=== PATIENT | male | born 1985 | race American Indian/Alaskan Native ===

== ENCOUNTER 2016-07-16 17:06 | Inpatient (IN) | payer MEDICAID ==
--- NOTE | 2016-07-16 17:37 | Emergency Department Report ---
Chief Complaint: Wound/Laceration Stated Complaint: CHEST PAIN / WOUND INFECTION Time Seen by Provider: 07/16/16 17:34 - HPI History of Present Illness: 31 y/o male paraplegia complain of wound under right thigh and heel of left foot .pt complain of chest pain x 1 days .denies any n/v/d at present . - ROS Review of Systems: per HPI - Exam Vital Signs: Vital Signs 07/16/16 17:15 Temperature 97.5 F L Pulse Rate 100 H Respiratory 17 Rate Blood Pressure 134/74 O2 Sat by Pulse 100 Oximetry Physical Exam: GENERAL: The patient is well-developed and well-nourished. Patient is in NAD. HENT: Normocephalic. Atraumatic. Patient has moist mucous membranes. Throat: No erythema, swelling or exudates. EYES: Extraocular motions are intact, PERRL NECK: Supple. No meningitic signs are noted. There is no adenopathy noted. CHEST/LUNGS: Clear to auscultation bilaterally. No wheezing, rales or rhonchi noted. There is no respiratory distress noted. HEART/CARDIOVASCULAR: Regular rate and rhythm. Normal S1 S2. No murmurs, rubs , clicks, or gallops. ABDOMEN: Abdomen is soft, nontender.. Bowel sounds normoactive. There is no abdominal distention. Negative rebound tenderness. : Deferred. SKIN: There is no rash. There is no edema. There is no diaphoresis. NEURO: The patient is A&Ox3. The patient has no focal neurologic deficits. MUSCULOSKELETAL: There is no tenderness or deformity. There is no limitation range of motion. pt paraplegia PSYCH: Pt has appropriate mood and affect. MSE screening note: Focused history and physical exam performed. Due to findings the following was ordered: ED Disposition for MSE Condition: Stable
[2016-07-16 18:03] LABS: Mean Corpuscular HGB Conc 29 % (32-34); Platelet Count 551 K/mm3 (140-440); Red Blood Count 4.55 M/mm3 (3.65-5.03); White Blood Count 11.3 K/mm3 (4.5-11.0)
[2016-07-16 18:04] LABS: Hematocrit 30.5 % (35.5-45.6); Hemoglobin 8.9 gm/dl (11.8-15.2); Mean Corpuscular Hemoglobin 20 pg (28-32); Mean Corpuscular Volume 67 fl (84-94); Red Cell Distribution Width 22.2 % (13.2-15.2)
[2016-07-16 18:18] LABS: Blood Urea Nitrogen 7 mg/dL (9-20); Calcium 8.5 mg/dL (8.4-10.2); Carbon Dioxide 21 mmol/L (22-30); Chloride 102.4 mmol/L (98-107); Glucose 83 mg/dL (75-100); Potassium 4.1 mmol/L (3.6-5.0); Sodium 139 mmol/L (137-145)
[2016-07-16 18:25] LABS: Anion Gap 20 mmol/L
[2016-07-16 18:49] LABS: Basophils % (Manual) 0 % (0.0-1.8); Blastocytes % (Manual) 0 %
[2016-07-16 19:05] LABS: Anisocytosis 1+; Platelet Estimate Consistent w Auto
[2016-07-16 19:06] LABS: Diff Status Complete; Hypochromasia 1+; Target Cells 1+
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
[2016-07-17] MEDS ORDERED: VANCOMYCIN/NS 1 GM/250 ML 250 ML IV ONE (08:20)
[2016-07-17] MEDS ORDERED: LEVAQUIN 750MG/150ML 150 ML IV ONE (08:21)
[2016-07-17] MEDS ORDERED: NACL 0.9% 1000 ML 1,000 ML ONE (08:27)
--- NOTE | 2016-07-17 10:03 | XRay Report ---
AP CHEST : 07/17/16 CLINICAL: Chest pain. COMPARISON:None FINDINGS: Normal heart and pulmonary vessels. The lungs are normally expanded and clear. The bones and soft tissues are unremarkable. IMPRESSION: Normal chest.
--- NOTE | 2016-07-17 10:48 | XRay Report ---
LEFT ANKLE THREE VIEWS: 07/16/16 17:06:00 CLINICAL: Foot infection. COMPARISON: 11/29/13 FINDINGS: The bones of the hindfoot and midfoot have lysed and are grossly deformed and miniscule compared to the previous exam. There is collapse of both the hindfoot and midfoot in a deep soft tissue ulcer on the plantar aspect of the hindfoot. The distal leg is greatly enlarged with greater soft tissue swelling than on the prior exam. Periosteal reaction along the entire imaged portions of the distal fibula. IMPRESSION: Chronic osteomyelitis with destruction of the hindfoot and midfoot. There may also be involvement of the distal fibula. MRI of the lower leg may be more definitive.
--- NOTE | 2016-07-17 10:53 | XRay Report ---
LEFT FOOT THREE VIEWS: 07/17/16 08:22:00 CLINICAL: Foot swelling. COMPARISON: 11/29/13 FINDINGS: Diffuse osteopenia. The bones of the hindfoot and midfoot are deformed a miniscule compared to the previous exam. A large plantar soft tissue ulcer extends to the calcaneus. It appears that the fifth toe has been amputated with a short remaining fragment of the proximal phalanx of the fifth toe. New erosive changes in the first metatarsal phalangeal joint. Cortical erosion and indistinctness of the distal fourth metatarsal. There is marked soft tissue swelling of the foot and lower leg which is increased compared to the prior exam. IMPRESSION: Chronic osteomyelitis with destruction of the hindfoot and midfoot. Osteomyelitis involving the great toe at the MTP joint and distal fourth metatarsal. These are all new findings compared to the previous exam.
--- NOTE | 2016-07-17 10:59 | XRay Report ---
RIGHT FEMUR TWO VIEWS: 07/16/16 17:06:00 CLINICAL: Infection. FINDINGS: Exuberant periosteal new bone formation along several centimeters of the the midportion of the right femur is a new finding compared to the 11/30/13 exam of the pelvis and hips. The pattern is typical of chronic osteomyelitis. Status post BKA. Osteolysis of the right femoral head is chronic and unchanged compared to the previous exam. No fracture. Diffuse soft tissue edema. No soft tissue air. IMPRESSION: Chronic osteomyelitis involving several centimeters of the right mid femur. This appears to be a new finding since 11/30/13.
[2016-07-17] MEDS ORDERED: MILK OF MAGNESIA PO PRN (11:49)
[2016-07-17] MEDS ORDERED: TYLENOL PO PRN (11:49)
[2016-07-17] MEDS ORDERED: DULCOLAX PR PRN (11:49)
[2016-07-17] MEDS ORDERED: ZOFRAN IV PRN (11:49)
[2016-07-17] MEDS ORDERED: SODIUM CHLORIDE FLUSH SYRINGE 10 ML IV PRN (11:54)
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
[2016-07-17 13:03] LABS: Creatine Kinase 63 units/L (55-170)
[2016-07-17 13:05] LABS: Creatine Kinase MB < 1.0 ng/mL (0.0-4.0)
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
[2016-07-17 17:51] LABS: Creatine Kinase 70 units/L (55-170)
[2016-07-17 17:54] LABS: Creatine Kinase MB < 1.0 ng/mL (0.0-4.0)
[2016-07-17] MEDS: MERREM 1,000 MG in NACL 0.9% 100 ML IV SCH ×2 (18:40→22:24)
[2016-07-17 20:39] LABS: Creatine Kinase 71 units/L (55-170)
[2016-07-17 20:41] LABS: Creatine Kinase MB < 1.0 ng/mL (0.0-4.0)
[2016-07-18] MEDS: MERREM 1,000 MG in NACL 0.9% 100 ML IV SCH ×5 (00:26→21:01)
[2016-07-18 01:32] LABS: Bacteria,Urine 1+ /HPF (Negative); Bilirubin,Urine NEG (Negative); Blood,Urine SM (Negative); Ketones,Urine NEG (Negative); Leukocyte Esterase,Urine LG (Negative); Mucus,Urine FEW /HPF; Nitrite,Urine POS (Negative)
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
--- NOTE | 2016-07-18 12:23 | Event Note ---
Date: 07/18/16
[2016-07-18 15:47] LABS: Basophils % (Auto) 0.7 % (0.0-1.8); Eosinophils % (Auto) 2.9 % (0.0-4.3); Mean Corpuscular HGB Conc 29 % (32-34); Platelet Count 513 K/mm3 (140-440); Red Blood Count 4.24 M/mm3 (3.65-5.03); White Blood Count 6.8 K/mm3 (4.5-11.0)
[2016-07-18 15:50] LABS: Hematocrit 29.3 % (35.5-45.6); Hemoglobin 8.6 gm/dl (11.8-15.2); Mean Corpuscular Hemoglobin 20 pg (28-32); Mean Corpuscular Volume 69 fl (84-94)
[2016-07-18 15:51] LABS: Red Cell Distribution Width 22.4 % (13.2-15.2)
[2016-07-18 15:53] LABS: Anion Gap 16 mmol/L; BUN/Creatinine Ratio 16.66; Blood Urea Nitrogen 10 mg/dL (9-20); Calcium 8.6 mg/dL (8.4-10.2); Carbon Dioxide 22 mmol/L (22-30); Chloride 101.3 mmol/L (98-107); Glucose 101 mg/dL (75-100); Potassium 4.4 mmol/L (3.6-5.0); Sodium 135 mmol/L (137-145)
[2016-07-18] MEDS: MORPHINE IV PRN ×2 (16:05→20:54)
[2016-07-19] MEDS: MORPHINE IV PRN ×4 (01:17→20:07)
[2016-07-19] MEDS: NACL 0.9% 1000 ML 1,000 ML IV SCH (05:29)
[2016-07-19] MEDS: MERREM 1,000 MG in NACL 0.9% 100 ML IV SCH ×3 (05:29→21:55)
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
--- NOTE | 2016-07-19 15:25 | Admit Criteria Form ---
Admission Criteria Documentation: OSTEOMYELITIS Clinical Indications for Admission to Inpatient Care (Place 'X' for any and all applicable criteria) Admission is indicated by ANY ONE of the following (1)(2)(3)(4)(5)(6): [ ] I. Significant systemic illness indicated by 2 or more of the following: [ ]a) Core (eg rectal) temperature greater or equal np969K(37.8C) in an adult [ ]b) Oral temperature[A] greater than or equal to 99.3 degrees F ( 37.4 degrees C) in an adult [ ]c) Heart rate greater than 90 beats per minute [ ]d) Respiratory rate greater than 20 breaths per minute or PaCO2 less than 32 mm Hg (4.3 kPa) [X ]e) White blood cell count > 12,000/mm3 (12 x109/L) or < 4000/mm3 ( 4 x109/L) or > 10% band cells [ ] II. Hemodynamic instability [ ] III. Severe pain requiring acute inpatient management [ ] IV. Bacteremia [ ] V. Mental status change (new) [ X] . Limb-threatening infection [ ] VII. Suspected necrotizing soft tissue infection (e.g., gas in tissue) [ ] VIII.Surgical intervention required (e.g., bone or soft tissue debridement, removal of foreign body, or revascularization procedure) not performable in outpatient or emergency department level of care(7) [X ] IX. Appropriate monitoring and therapy (IV antibiotics) cannot be immediately arranged for home or outpatient setting [ ] XI. Outpatient treatment failure (e.g., resistant organism identified, adverse medication effect, progression or lack of sufficient improvement of infection) [ ] XII. High-risk comorbid condition present including ANY ONE of the following : [ ]a) Poorly controlled diabetes (e.g., HbA1c greater than 10% (0.1)) [ ]b) Vascular insufficiency to affected area [ ]c) Cirrhosis [ ]d) Neutropenia [ ]e) Asplenia [ ]f) Immunosuppression (e.g., chronic systemic corticosteroid use) [ ]g) Symptomatic heart failure [ ] XIII.Joint involvement (e.g., septic arthritis) suspected [ ] XIV. Vertebral osteomyelitis [ ] XV. Skull-base osteomyelitis (e.g.,"malignant external otitis")[A](8)(9)(10 ) Extended stay beyond goal length of stay may be needed for(1)(3)(4)(5)(24)(25): [ ]a) Inadequate clinical response to antibiotics (e.g., continued fever, hypotension) [ ]b) Bacteremia [ ]c) Surgical intervention needed (e.g., beyond superficial debridement)(26) [ ]d) Vertebral osteomyelitis with spinal cord compression, abscess formation, or mechanical instability [ ]e) Antibiotic-resistant organism identified (e.g., methicillin-resistant Staphylococcal aureus) [ ]f) Deep venous thrombosis [ ]g) Unstable comorbidities (e.g., heart failure, renal insufficiency, immunosuppressed state)(28) The original [facility] H?REL content created by [facility] has been revised. The portions of the content which have been revised are identified through the use of italic text or in bold, and [facility] has neither reviewed nor approved the modified material. All other unmodified content is copyright [facility] [employer] 2016. Admission Criteria Met: Yes
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
--- NOTE | 2016-07-19 17:34 | Progress Note ---
[id number] [id number] Status: Chronic Plan to address problem: With the wheelchair ambulation only status I recommended an above-knee amputation, I have discussed this with him again. He has not decided for amputation, till he has made up his mind and ready to proceed with amputation, advised to continue with antibiotic suppression, local wound care. There is nothing more I could offer during this time. Once she has elected to proceed with amputation, please call us back, we will schedule amputation as an elective procedure at that time. Till then we'll sign off. (2) Decubitus ulcer of right thigh Current Visit: Yes Status: Acute Plan to address problem: He may continue with local wound care and antibiotic suppression. It is my belief that you injury will need a proximal level amputation, most likely a hip disarticulation because the location of the decubitus. It may be worthwhile to consult plastic surgery to see whether decubitus could be covered with a skin flap or otherwise, I doubt this is possible, my knoledge is limited in this regard. If she elected proceed with a hip disarticulation, this could be staged for later time once a satisfactory recovery from the left above-knee amputation. Prior to the right hip disarticulation, also will need a general surgery evaluation and a temporary diverging colostomy. Nothing more to offer this time. Subjective Date of service: 07/19/16 Principal diagnosis: left foot osteomyelitis Interval history: No change in status. Objective Vital signs: Vital Signs - 12hr 07/19/16 07/19/16 07/19/16 07:38 10:00 12:12 Temperature 97.6 F 98.0 F Pulse Rate [ 88 88 87 Left] Respiratory 16 20 18 Rate Blood Pressure 120/56 114/57 [Left Arm] O2 Sat by Pulse 99 97 Oximetry 07/19/16 16:25 Temperature 97.8 F Pulse Rate [ 83 Left] Respiratory 18 Rate Blood Pressure 129/70 [Left Arm] O2 Sat by Pulse 99 Oximetry - Labs CBC & BMP: 07/18/16 15:13 07/18/16 15:13
[2016-07-20] MEDS: DAKIN'S HALF STRENGTH TP SCH ×3 (00:01→21:19)
[2016-07-20] MEDS: MERREM 1,000 MG in NACL 0.9% 100 ML IV SCH ×3 (05:25→21:14)
[2016-07-20] MEDS: MORPHINE IV PRN ×4 (05:27→21:13)
[2016-07-20] MEDS: NACL 0.9% 1000 ML 1,000 ML IV SCH ×3 (09:22→21:17)
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
[2016-07-21] MEDS: MORPHINE IV PRN ×4 (01:37→21:51)
[2016-07-21] MEDS: MERREM 1,000 MG in NACL 0.9% 100 ML IV SCH ×3 (05:32→21:51)
[2016-07-21] MEDS: NACL 0.9% 1000 ML 1,000 ML IV SCH (13:20)
[2016-07-21] MEDS: DAKIN'S HALF STRENGTH TP SCH ×2 (13:21→21:53)
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
[2016-07-22] MEDS: MORPHINE IV PRN ×5 (01:38→21:09)
[2016-07-22] MEDS: NACL 0.9% 1000 ML 1,000 ML IV SCH ×3 (01:39→23:49)
[2016-07-22] MEDS: MERREM 1,000 MG in NACL 0.9% 100 ML IV SCH ×3 (05:38→23:50)
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
[2016-07-22] MEDS: DAKIN'S HALF STRENGTH TP SCH ×2 (15:11→23:50)
[2016-07-23] MEDS: MORPHINE IV PRN ×4 (01:35→23:56)
[2016-07-23] MEDS: MERREM 1,000 MG in NACL 0.9% 100 ML IV SCH ×3 (07:02→21:48)
[2016-07-23] MEDS: NACL 0.9% 1000 ML 1,000 ML IV SCH ×2 (12:00→21:51)
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
[2016-07-23] MEDS: DAKIN'S HALF STRENGTH TP SCH ×2 (15:37→23:40)
[2016-07-24] MEDS: MERREM 1,000 MG in NACL 0.9% 100 ML IV SCH ×2 (06:59→13:59)
[2016-07-24] MEDS: DAKIN'S HALF STRENGTH TP SCH (10:55)
--- NOTE | 2016-07-24 11:11 | Progress Note ---
Assessment and Plan - Patient Problems (1) Left foot infection Current Visit: Yes Status: Chronic Plan to address problem: We'll tentatively scheduled for left above-knee amputation possibly for tomorrow pending availability of OR time, my schedule. (2) Decubitus ulcer of right thigh Current Visit: Yes Status: Acute Subjective Date of service: 07/24/16 Principal diagnosis: left foot osteomyelitis Interval history: No new changes, he had agreed for left lower extremity amputation, above knee type. Procedure, complications, expected outcome discussed with. Objective Vital signs: Vital Signs - 12hr 07/23/16 07/24/16 07/24/16 23:56 00:47 05:08 Temperature 98.1 F 103.1 F H Pulse Rate [ 93 H 62 Left] Respiratory 20 21 19 Rate Blood Pressure 124/58 125/59 [Left Arm] O2 Sat by Pulse 97 100 Oximetry 07/24/16 07/24/16 07:00 07:48 Temperature 97.6 F 97.6 F Pulse Rate [ 66 Left] Respiratory 20 Rate Blood Pressure 114/65 [Left Arm] O2 Sat by Pulse 100 Oximetry - Labs CBC & BMP: 07/18/16 15:13 07/18/16 15:13
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
[2016-07-24] MEDS: NACL 0.9% 1000 ML 1,000 ML IV SCH (12:55)
[2016-07-24 15:54] VITALS: BP 126/69
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
--- NOTE | 2016-07-27 11:31 | Query-Ulcer ---
Deajennifer Plaza Date:_07/27/16 Multigraph Operator/CDS:_Dwight/Jason Michel Phone#:_[phone] Exercise your independent professional judgment when responding to query. Questions asked do not imply a particular answer is desired or expected. We greatly appreciate your clarification on this issue. Clinical Documentation States: 31 Y/O paraplegic Male admitted on 07/17/16 with complaints of foul smelling wounds under his right thigh and left heel. Clinical Findings Show: Right Leg wound culture growing diptheroids, pseudomonas aeruginosa, Acientobacter Lwoffii Left foot wound culture growing pseudomonas aeruginosa, Acientobacter Lwoffii, Please specify the cause of Ulcer: [ ] Diabetic Ulcer [ x] Pressure Ulcer [ ] Venous Stasis Ulcer [ ] Arterial Ulcers (Ischemic Ulcer) [ ] Other: [ ] Unspecified Please specify the stage below: [ ] Stage I (pre-ulcer skin changes limited to persistent focal erythema) [ ] Stage II (abrasion, blister, and partial thickness skin loss) [ ] Stage III (full thickness skin loss with subcutaneous necrosis/damage) [ ] Stage IV (necrosis of soft tissues through to underlying muscle, tendon, bone) [ x] Unstageable [ ] Unable to determine Present on Admission: [y ] Yes (Y) [ ] Clinically undeterminable (W) [ ] No (N) Please also document response in your Progress Notes and/or Discharge Summary and indicate if the condition was present on admission. KATHERYN
== END 2016-07-24 20:10 | disposition left against medical advice (07) | DRG 872 ==
LOC: ED 17:06 → 4A 07-17 11:49
PROVIDERS: ADMIT Internal Medicine; ATTEND Internal Medicine
DX: A41.9 Sepsis, unspecified organism (principal); N39.0 Urinary tract infection, site not specified; R07.89 Other chest pain; M86.8X7 Other osteomyelitis, ankle and foot; M86.651 Other chronic osteomyelitis, right thigh; G82.20 Paraplegia, unspecified; D63.8 Anemia in other chronic diseases classified elsewhere; L89.219 Pressure ulcer of right hip, unspecified stage; Z86.718 Personal history of other venous thrombosis and embolism; Z98.890 Other specified postprocedural states; Z89.511 Acquired absence of right leg below knee; Z88.8 Allergy status to other drugs, medicaments and biological substances; Z86.711 Personal history of pulmonary embolism
CPT/HCPCS: 36415; 71010; 80048; 81001; 82140; 82550; 82553; 84484; 85007; 85025; 87040; 87076; 87086; 87116; 87186; 93005; 93010; 96365; 96375; A6260; J1956; J2185; J2270; J3370; J7030

== ENCOUNTER 2022-04-03 12:55 | Emergency (ER) | payer MEDICAID ==
[2022-04-03 13:29] VITALS: BP 114/66
--- NOTE | 2022-04-03 13:36 | Emergency Department Report ---
Blank Doc - Documentation Documentation: 37-year-old male that is paraplegic presents with bilateral wounds to legs that typically are infected. 1- This is a initial triage assessment/medical screening only. Full assessment and work-up will be completed once the patient is in proper hospital gown, ED bed and in a private room setting. This initial assessment/diagnostic orders/clinical plan/ treatment(s) is/are subject to change based on pt's health status, clinical progression and re-assessment by fellow clinical providers in the ED. Further treatment and workup at subsequent clinical providers discretion. Patient/guardians urged not to elope from ED as their condition may be serious if not clinically assessed and managed. 2-labs The patient was evaluated in the emergency department for symptoms described in the history of present illness. He/she was evaluated in the context of the global COVID-19 pandemic, which necessitated consideration that the patient might be at risk for infection with the virus that causes COVID-19. Institutional protocols and algorithms that pertain to the evaluation of patients at risk for COVID-19 are in a state of rapid change based on information released by regulatory bodies including the CDC and federal and state organizations. These policies and algorithms were followed during the patient's care in the emergency department. Please note that these policies, procedures and recommendations changed on a rapid basis.
== END 2022-04-03 20:00 | disposition left against medical advice (07) ==
LOC: ED 12:55
DX: R07.9 Chest pain, unspecified (principal); Z53.21 Procedure and treatment not carried out due to patient leaving prior to being seen by health care provider